=== PATIENT | female | born 1975 | race Caucasian/White ===

== ENCOUNTER → 2022-03-31 | Outpatient (CLI) | payer BC | LOC: MHCPAIN 10:52 | DX: M54.50 Low back pain, unspecified (principal); M47.816 Spondylosis without myelopathy or radiculopathy, lumbar region; M43.16 Spondylolisthesis, lumbar region; M47.812 Spondylosis without myelopathy or radiculopathy, cervical region; G44.86 Cervicogenic headache | CPT/HCPCS: G0463 ==

== ENCOUNTER → 2022-04-12 | Outpatient (CLI) | payer BC | LOC: MHCPAIN 11:08 | DX: M47.816 Spondylosis without myelopathy or radiculopathy, lumbar region (principal); M54.50 Low back pain, unspecified; M53.3 Sacrococcygeal disorders, not elsewhere classified ==

== ENCOUNTER → 2022-04-26 | Outpatient (CLI) | payer BC | LOC: MHCPAIN 12:00 | DX: M47.816 Spondylosis without myelopathy or radiculopathy, lumbar region (principal); M54.50 Low back pain, unspecified ==

== ENCOUNTER → 2022-05-03 | Outpatient (CLI) | payer BC | LOC: MHCPAIN 10:29 | DX: M47.817 Spondylosis without myelopathy or radiculopathy, lumbosacral region (principal); M54.50 Low back pain, unspecified; M53.3 Sacrococcygeal disorders, not elsewhere classified | CPT/HCPCS: J1100; J2250; J2405; J3010 ==